=== PATIENT | female | born 1990 | race Caucasian/White ===

== ENCOUNTER 2020-02-03 08:57 | Emergency (ER) | payer BC ==
--- NOTE | 2020-02-03 10:11 | EDPHYS ---
Physician Documentation [facility] Name: Laurie Griffin Age: 29 yrs Sex: Female : 1990 Arrival Date: 02/03/2020 Time: 09:01 Bed 16 Private MD: ANGÉLICA Physician Reddy Patel HPI: 02/02 09:46 This 29 yrs old Female presents to ER via Ambulatory with complaints of Rib mago Pain. 09:46 The patient or guardian reports chest pain that is located primarily in the anterior mago chest wall. Onset: The symptoms/episode began/occurred last night. The pain does not radiate. Associated signs and symptoms: The patient has no apparent associated signs or symptoms. The chest pain is described as sharp. Modifying factors: The symptoms are alleviated by remaining still, the symptoms are aggravated by deep breath, jumping, palpation of area, twisting torso. Severity of pain: At its worst the pain was mild moderate in the emergency department the pain is unchanged. The patient has not experienced similar symptoms in the past. 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 - Social history:: Smoking status: Patient reports the use of cigarette tobacco products, 2 cigarettes a day . - Family history:: not pertinent. ROS: 09:46 Constitutional: Negative for fever, chills, and weight loss, Eyes: Negative for injury, mago pain, redness, and discharge, ENT: Negative for injury, pain, and discharge, Neck: Negative for injury, pain, and swelling, Cardiovascular: Negative for chest pain, palpitations, and edema, Abdomen/GI: Negative for abdominal pain, nausea, vomiting, diarrhea, and constipation, Back: Negative for injury and pain, : Negative for injury, bleeding, discharge, and swelling, MS/Extremity: Negative for injury and deformity, Skin: Negative for injury, rash, and discoloration, Neuro: Negative for headache, weakness, numbness, tingling, and seizure, Psych: Negative for depression, anxiety, suicide ideation, homicidal ideation, and hallucinations, Allergy/Immunology: Negative for hives, rash, and allergies, Endocrine: Negative for neck swelling, polydipsia, polyuria, polyphagia, and marked weight changes, Hematologic/Lymphatic: Negative for swollen nodes, abnormal bleeding, and unusual bruising. 09:46 Respiratory: Positive for cough, shortness of breath, at rest. Exam: 09:46 Constitutional: This is a well developed, well nourished patient who is awake, alert, mago and in no acute distress. Head/Face: Normocephalic, atraumatic. Eyes: Pupils equal round and reactive to light, extra-ocular motions intact. Lids and lashes normal. Conjunctiva and sclera are non-icteric and not injected. Cornea within normal limits. Periorbital areas with no swelling, redness, or edema. ENT: Nares patent. No nasal discharge, no septal abnormalities noted. Tympanic membranes are normal and external auditory canals are clear. Oropharynx with no redness, swelling, or masses, exudates, or evidence of obstruction, uvula midline. Mucous membranes moist. Neck: Trachea midline, no thyromegaly or masses palpated, and no cervical lymphadenopathy. Supple, full range of motion without nuchal rigidity, or vertebral point tenderness. No Meningismus. Cardiovascular: Regular rate and rhythm with a normal S1 and S2. No gallops, murmurs, or rubs. Normal PMI, no JVD. No pulse deficits. Respiratory: Lungs have equal breath sounds bilaterally, clear to auscultation and percussion. No rales, rhonchi or wheezes noted. No increased work of breathing, no retractions or nasal flaring. Abdomen/GI: Soft, non-tender, with normal bowel sounds. No distension or tympany. No guarding or rebound. No evidence of tenderness throughout. Back: No spinal tenderness. No costovertebral tenderness. Full range of motion. Skin: Warm, dry with normal turgor. Normal color with no rashes, no lesions, and no evidence of cellulitis. MS/ Extremity: Pulses equal, no cyanosis. Neurovascular intact. Full, normal range of motion. Neuro: Awake and alert, GCS 15, oriented to person, place, time, and situation. Cranial nerves II-XII grossly intact. Motor strength 5/5 in all extremities. Sensory grossly intact. Cerebellar exam normal. Normal gait. Psych: Awake, alert, with orientation to person, place and time. Behavior, mood, and affect are within normal limits. 09:46 Chest/axilla: Inspection: normal, Palpation: tenderness, of the anterior aspect of right upper chest, anterior aspect of left upper chest, right breast and left breast, Axilla: are normal, no acute changes, Breasts: are normal, no acute changes, Lymph nodes: supraclavicular nodes. Vital Signs: 09:05 BP 97 / 73; Pulse 94; Resp 14 S; Temp 98.2(TE); Pulse Ox 100% on R/A; aa5 10:48 BP 104 / 73; Pulse 89; Resp 16 S; Pulse Ox 100% on R/A; ca1 MDM: 09:12 Patient medically screened. [facility] 02/02 09:43 Order name: Urine Dipstick--Ancillary (enter results) [facility] 02/02 09:43 Order name: Urine --Ancillary (enter results) [facility] 02/02 09:17 Order name: Chest Pa And Lat (2 Views) XRAY: EXPIRATORY PA [facility] 02/02 09:17 Order name: Urine Dipstick-Ancillary (obtain specimen); Complete Time: 09:42 [facility] 02/02 09:50 Order name: INCENTIVE SPIROMETRY [facility] 02/02 09:17 Order name: Urine Test (obtain specimen); Complete Time: 09:42 [facility] Administered Medications: 10:15 Drug: [place] (7.5 mg-325 mg) 1 tabs {Note: rass 0.} Route: PO; ca1 10:40 Follow up: Response: No adverse reaction; Pain is decreased; RASS: Alert and Calm (0) ca1 Disposition: 02/03/20 10:11 Discharged to Home. Impression: Other chest pain - WALL. - Condition is Stable. - Discharge Instructions: Chest Wall Pain. - Prescriptions for Tylenol- Codeine #3 300-30 mg Oral Tablet - take 2 tablets by ORAL route every 6 hours As needed; 24 tablet. - Medication Reconciliation Form, Thank You Letter, Antibiotic Education, Prescription Opioid Use, Work release form form. - Follow up: Private Physician; When: 2 - 3 days; Reason: Recheck today's complaints, Continuance of care, Re-evaluation by your physician. Follow up: Bertram Beard MD; When: 2 - 3 days; Reason: Recheck today's complaints, Re-evaluation by your physician. - Problem is new. - Symptoms have improved. Signatures: Dispatcher [employer] EDReddy Bansal MD MD cha Calderon, Audri, RN RN aa5 Carlee Phillip RN RN ca1 Corrections: (The following items were deleted from the chart) 10:11 10:11 02/03/2020 10:11 Discharged to Home. Impression: Other chest pain - WALL. mago Condition is Stable. Discharge Instructions: Chest Wall Pain. Prescriptions for Tylenol-Codeine #3 300-30 mg Oral Tablet - take 2 tablets by ORAL route every 6 hours As needed; 24 tablet. and Forms are Medication Reconciliation Form, Thank You Letter, Antibiotic Education, Prescription Opioid Use. Follow up: Private Physician; When: 2 - 3 days; Reason: Recheck today's complaints, Continuance of care, Re-evaluation by your physician. Problem is new. Symptoms have improved. mago 10:50 10:11 02/03/2020 10:11 Discharged to Home. Impression: Other chest pain - WALL. ca1 Condition is Stable. Discharge Instructions: Chest Wall Pain. Prescriptions for Tylenol-Codeine #3 300-30 mg Oral Tablet - take 2 tablets by ORAL route every 6 hours As needed; 24 tablet. and Forms are Medication Reconciliation Form, Thank You Letter, Antibiotic Education, Prescription Opioid Use. Follow up: Private Physician; When: 2 - 3 days; Reason: Recheck today's complaints, Continuance of care, Re-evaluation by your physician. Follow up: Bertram Beard; When: 2 - 3 days; Reason: Recheck today's complaints, Re-evaluation by your physician. Problem is new. Symptoms have improved. mago
--- NOTE | 2020-02-03 10:11 | ER ---
Nurse's Notes [facility] Name: Laurie Griffin Age: 29 yrs Sex: Female : 1990 Arrival Date: 02/03/2020 Time: 09:01 Bed 16 Private MD: Diagnosis: Other chest pain-WALL Presentation: 02/02 09:03 Chief complaint: Chief complaint: Patient states: "I was wrestling with my brothers aa5 last night because they just came home from the and I hurt my ribs". Pt c/o pain to right lower rib cage. 09:03 Coronavirus screen: Client denies travel out of the [place] in the last 14 days. At this aa5 time, the client does not indicate any symptoms associated with coronavirus-19. Ebola Screen: Patient negative for fever greater than or equal to 101.5 degrees Fahrenheit, and additional compatible Ebola Virus Disease symptoms. Initial Sepsis Screen: Does the patient meet any 2 criteria? No. Patient's initial sepsis screen is negative. Does the patient have a suspected source of infection? No. Patient's initial sepsis screen is negative. Risk Assessment: Do you want to hurt yourself or someone else? Patient reports no desire to harm self or others. Onset of symptoms was January 2020. 09:03 Acuity: MARY 4 aa5 09:03 Method Of Arrival: Ambulatory aa5 Triage Assessment: 09:15 General: Appears in no apparent distress. comfortable, Behavior is cooperative, bp appropriate for age, anxious. Pain: Complains of pain in right lateral anterior chest. EENT: No deficits noted. Neuro: No deficits noted. Cardiovascular: No deficits noted. Respiratory: No deficits noted. GI: No signs and/or symptoms were reported involving the gastrointestinal system. : No signs and/or symptoms were reported regarding the genitourinary system. Derm: No deficits noted. Musculoskeletal: Reports pain in right lateral anterior chest. 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 - Social history:: Smoking status: Patient reports the use of cigarette tobacco products, 2 cigarettes a day . - Family history:: not pertinent. Screenin:15 Abuse screen: Denies threats or abuse. Denies injuries from another. Nutritional bp screening: No deficits noted. Tuberculosis screening: No symptoms or risk factors identified. Fall Risk None identified. Assessment: 09:15 General: SEE TRIAGE NOTE. bp 10:15 Reassessment: Patient appears in no apparent distress at this time. Patient and/or ca1 family updated on plan of care and expected duration. Pain level reassessed. Patient is alert, oriented x 3, equal unlabored respirations, skin warm/dry/pink. 10:48 Reassessment: Patient appears in no apparent distress at this time. Patient is alert, ca1 oriented x 3, equal unlabored respirations, skin warm/dry/pink. Vital Signs: 09:05 BP 97 / 73; Pulse 94; Resp 14 S; Temp 98.2(TE); Pulse Ox 100% on R/A; aa5 10:48 BP 104 / 73; Pulse 89; Resp 16 S; Pulse Ox 100% on R/A; ca1 ED Course: 09:01 Patient arrived in ED. as 09:03 Arm band placed on Patient placed in an exam room, on a stretcher. aa5 09:11 Triage completed. aa5 09:12 Reddy Patel MD is Attending Physician. mago 09:15 Patient has correct armband on for positive identification. Bed in low position. Call bp light in reach. Side rails up X2. 09:42 Chest Pa And Lat (2 Views) XRAY: EXPIRATORY PA In Process Unspecified. EDMS 10:11 Bertram Beard MD is Referral Physician. mago 10:45 INCENTIVE SPIROMETRY Sent. ca1 10:48 No provider procedures requiring assistance completed. Patient did not have IV access ca1 during this emergency room visit. Administered Medications: 10:15 Drug: [place] (7.5 mg-325 mg) 1 tabs {Note: rass 0.} Route: PO; ca1 10:40 Follow up: Response: No adverse reaction; Pain is decreased; RASS: Alert and Calm (0) ca1 Outcome: 10:11 Discharge ordered by . mago 10:49 Discharged to home ambulatory, with family. ca1 10:49 Condition: stable 10:49 Discharge instructions given to patient, Instructed on discharge instructions, follow up and referral plans. no drinking with medication, no driving heavy equipment, medication usage, Demonstrated understanding of instructions, follow-up care, medications, Prescriptions given X 1. 10:50 Patient left the ED. ca1 Signatures: Dispatcher [employer] EDHI Reddy Patel MD MD cha Martinez, Amelia as Erin Andrews, RN RN aa5 Chuy Mckeon RN RN Carlee Phillip RN RN ca1 Corrections: (The following items were deleted from the chart) 09:11 09:08 Chief complaint: aa5 aa5 20:18 09:09 Erin Andrews, RN is Primary Nurse. aa5 aa5
[2020-02-03 10:14] LABS: Urine Blood NEGATIVE (NEG); Urine Glucose NEGATIVE (NEG); Urine Protein NEGATIVE (NEG); Urine Specific Gravity >1.030 (1.005-1.030); Urine pH 5.5 (5.0-7.0)
[2020-02-03] MEDS ORDERED: HYDROCODONE/APAP 7.5/325 MG TAB ONE (10:19)
[2020-02-03 10:54] VITALS: TEMP 98.2; O2SAT 100
[2020-02-03 10:55] VITALS: BP 104/73
--- NOTE | 2020-02-03 13:21 | RAD REPORT ---
EXAM DESCRIPTION: RAD - Chest Pa And Lat (2 Views) - 02/03/2020 9:46 am CLINICAL HISTORY: CHEST PAIN Chest pain. COMPARISON: No comparisons FINDINGS: The lungs are clear. Small bilateral pleural effusions. No measurable pneumothorax. The he art is normal in size. No displaced fractures.
== END 2020-02-03 10:50 | disposition home or self-care (01) ==
LOC: ER 08:57
DX: R07.89 Other chest pain (principal); Z88.1 Allergy status to other antibiotic agents; Z88.6 Allergy status to analgesic agent; F17.210 Nicotine dependence, cigarettes, uncomplicated
CPT/HCPCS: 71046; 81003; 81025; 99283